=== PATIENT | female | born 1995 | race Caucasian/White ===

== ENCOUNTER → 2019-07-04 12:40 | Outpatient (CLI) | payer BC, SELFPAY ==
--- NOTE | 2019-07-04 12:46 | US_ITS ---
PROCEDURE: US TRANSVAGINAL CLINICAL INDICATION: LLQ PAIN COMPARISON: No exams were available for comparison FINDINGS: The uterus is 9 x 5 x 6 cm with a combined endometrial thickness of 1 cm. No obvious uterine mass. The left ovary is 4 x 1.6 cm with small follicles. The right ovary is 3.2 x 2.4 cm with small follicles. There is bilateral ovarian blood flow. Small amount fluid is present in the cul-de-sac. IMPRESSION: Small amount of cul-de-sac fluid. Endometrium upper limits of normal. Otherwise negative pelvic ultrasound Dictated by: Juan Guzman MD 07/04/2019 16:40 Electronically signed by Juan Guzman MD in [place] 07/04/2019 16:40
== END ==
PROVIDERS: PCP Family Medicine; Visit Provider Physician Assistant
DX: R10.32 Left lower quadrant pain (principal)
CPT/HCPCS: 76830

== ENCOUNTER → 2020-03-30 10:58 | Outpatient (POV) | payer BC, SELFPAY | PROVIDERS: Visit Provider Otolaryngology | DX: Z00.00 Encounter for general adult medical examination without abnormal findings (principal) ==

== ENCOUNTER → 2020-04-26 11:29 | Outpatient (CLI) | payer BC, SELFPAY ==
[2020-04-26 13:43] LABS: Coronavirus 19 IgG Antibody Positive (Negative); Coronavirus 19 IgM Antibody Negative (Negative)
== END ==
PROVIDERS: Visit Provider Otolaryngology
DX: Z20.828 Contact with and (suspected) exposure to other viral communicable diseases (principal); U07.1 COVID-19
CPT/HCPCS: 36415; 86328

== ENCOUNTER 2020-04-27 06:51 | Day surgery (SDC) | payer BC, SELFPAY ==
[2020-04-26 17:02] VITALS: BMI 21.9
[2020-04-27] VITALS (11 sets, daily range): BP systolic 124–137; BP diastolic 51–86; PULSE 63–103; RESP 16–18; TEMP 36.5–36.8; O2SAT 100
[2020-04-27 06:35] LABS: HCG Qualitative, Serum Negative (Negative)
--- NOTE | 2020-04-27 07:53 | P.PN_ITS ---
[facility] Anesthesia Checklist - Patient Identification Patient Identification: Arm Band - Structural Data Admitted From: Home Planned Operative Procedure/s: Bilateral Tonsillectomy Consent for Planned Operative Procedure(s) Verified: Yes Verified Documents: Surgical Consent, History and Physical - NPO Status Verified Time NPO: 00:00 - Additional verifications Anesthesia Reactions: No Hx Blood Transfusions: No Blood Transfusion Reaction: No - Airway Assessment C-Spine Mobility Assessed: Yes (mp1) TMJ Mobility Assessed: Yes Dentition: Good Dentition - Neurological Assessment Level of Consciousness: Awake, Alert - Anesthesia Plan Anesthesia Risk discussed: Yes Anesthesia Plan: Verified ASA Class: I Anesthesia Type: General [facility] History I have reviewed the patient's past medical history: Yes Medical History: Denies:: Cancer, Diabetes Mellitus Type 1, Diabetes Mellitus Type 2, MRSA, Seizures *Have you ever received a pneumonia vaccine?: No *Have you received a flu vaccine this season?: No Other Medical History: Denies: Blood Transfusion Reaction Anesthesia experience/problems:: nac Other Surgeries: Yes: Tubal Ligation Amputation: No Fractures: No - *Social History Smoking Status: Never smoker Alcohol Intake: never Alcohol Intake Frequency:: holidays/special occasions only Substance Use Type: denies use *Occupational Status:: unemployed Housing: house Household Members: spouse *Travel in the last 8 weeks: None Family Hx:: No significant family history
--- NOTE | 2020-04-27 09:24 | HMH.ANESI ---
[facility] Anesthesia Record Part I Intake, IV Amount: 1,000 Estimated blood loss (mL): 10 Urine output (mL): 0 (NM) Blood Products used (#): none Blood Pressure: 135/77 SaO2: 100 Pulse Rate: 103 Respiratory Rate: 16 Temperature: 97.7 F Patient is:: Awake, Stable Stable to PACU at:: 09:20
--- NOTE | 2020-04-27 10:23 | HMH.OPNOTE ---
Date of procedure: 04/27/20 Pre-op Diagnosis:: Recurrent tonsilitis and tonsil stones Post-op Diagnosis:: Same Procedure performed:: Adenotonsillectomy Surgeon:: Lashanda Combs MD FLOAT OPERATOR:: Andrew Henry Anesthesia: GETA Estimated blood loss (mL): 5 Operative findings:: Multiple tonsil stones Operative note:: Patient was brought to the operating room after informed consent was obtained. She was placed supine on the operating table and general endotracheal anesthesia was induced. A 7.0 endotracheal tube was placed and she was draped in the usual fashion for this procedure. A Mckenzie Kenneth mouthgag was placed in the patient's mouth with care not to injure the lips teeth tongue or gums and she was gently placed in suspension. A red rubber catheter was threaded on the right nare and secured at the nasal ala with a curved tonsil clamp. The right tonsil was grasped with a straight Allis clamp retracted medially and dissected free using Bovie electrocauterization and the left tonsil was removed in the same fashion. Once the tonsils removed the adenoid pad was inspected this was not significantly hypertrophied and the red rubber catheter was released and removed the Mckenzie Kenneth mouthgag was placed in the released position for approximately 2 minutes and then reexpanded. Minor bleeding from the tonsillar beds was controlled using suction Bovie cautery. The Mckenzie Kenneth mouthgag was then released and removed and the procedure was terminated. Patient was extubated in the operating room and taken the recovery room in good condition. Condition: stable Disposition: PACU Specimens:: bilateral tonsils Complications:: None apparent
--- NOTE | 2020-04-27 16:03 | HMH.ANESII ---
[facility] Anesthesia Record Part II Discharge Time: 09:50 Destination: Surgical Day Care (OP Surgery) PACU nurse assessment reviewed?: Yes Patient Condition:: Good Anesthesia Complications:: None Swallowing reflex intact?: Yes Cyanosis?: No Blood Pressure: 137/86 Pulse Rate: 77 Temperature: 97.7 F Mental Status: Alert & Oriented Pain level:: 0 Nausea and/or vomitting:: None Intake, IV Amount: 0 (Normovolemic)
== END 2020-04-27 10:30 | disposition home or self-care (01) ==
LOC: OR 06:53
PROVIDERS: PCP Family Medicine; Visit Provider Otolaryngology
PROC: (CPT 42821; principal; 2020-04-27 08:30)
DX: J03.91 Acute recurrent tonsillitis, unspecified (principal); J35.8 Other chronic diseases of tonsils and adenoids
CPT/HCPCS: 42821; 84703; J2405

== ENCOUNTER → 2020-08-10 10:07 | Outpatient (POV) | payer BC, SELFPAY | PROVIDERS: Visit Provider Otolaryngology | DX: Z00.00 Encounter for general adult medical examination without abnormal findings (principal) ==

== ENCOUNTER 2022-03-24 19:42 | Emergency (ER) | payer BC, SELFPAY ==
[2022-03-24 19:53] VITALS: BP 130/76; PULSE 69; RESP 16; TEMP 36.9; O2SAT 98; BMI 22.7
--- NOTE | 2022-03-24 20:04 | HMH.EDUTC ---
[facility] Disposition Clinical Impression: Contact dermatitis Qualifiers: Contact dermatitis type: allergic Contact dermatitis trigger: unspecified trigger Qualified Code(s): L23.9 - Allergic contact dermatitis, unspecified cause Allergic reaction Qualifiers: Encounter type: initial encounter Qualified Code(s): T78.40XA - Allergy, unspecified, initial encounter Disposition: Home, Self-Care Condition on Discharge: Good Instructions: DI for Contact Dermatitis Additional Instructions: Try to identify and avoid contact with the offending substance. Don't start the oral steroids until tomorrow. Don't put the topical steroids (triamcinolone) on your face or your groin. Follow up with your regular doctor. GO TO THE ER FOR ANY WORSENING SYMPTOMS OR CONCERNS Try to keep taking the benedryl you have regularly (every 6 hours) as much as you can for the next few days. Prescriptions: methylPREDNISolone [Medrol] 4 mg PO DIRECTED 6 Days #21 packet Transmission Status: Sent to [facility] Triamcinolone Acetonide 1 applicatio TP TIDP PRN 7 Days #1 gm PRN Reason: Itching Transmission Status: Sent to [facility] Referrals: Neetu Villalpando MD [Primary Care Provider] - Time of Disposition: 20:09 Medical Decision Making - Medical Records Medical records reviewed: No: I reviewed the patient's medical records. - Kulwant Inquiry Pt receiving controlled substance: No Vital Signs: 03/24/22 19:53 03/24/22 20:08 Temperature 98.4 F 98.4 F Temperature Source Oral Pulse Rate 69 Pulse Rate [Left] 69 Respiratory Rate 16 16 Blood Pressure 130/76 Blood Pressure [Right Arm] 130/76 Blood Pressure Mean [Right Arm] 94 02 Sat by Pulse Oximetry 98 Orders (Tests/Meds): ED MEDICATIONS Discontinued Medications Generic Name Dose Route Start Last Admin Trade Name Freq PRN Reason Stop Dose Admin Methylprednisolone Sodium Succinate 125 mg 03/24/22 20:04 03/24/22 20:07 Methylprednisolone Sod Succ 125mg Vial IM 03/24/22 20:05 125 mg ONCE ONE Administration [facility] HPI - General Stated complaint: rash Time Seen by Provider: 03/24/22 20:04 Mode of Arrival: Ambulatory Source of Information: Patient, Significant Other Limitations: No Limitations Description of Symptoms (Recalled from Triage Doc. by RN): patient comes in for a rash. symptoms have been ongoing for 4 days. rash is on thighs and spreading HEENT Symptoms (Recalled from RN notes): No Resp Symptoms (Recalled from RN notes): No Skin Symptoms (Recalled from RN notes): Yes MS Symptoms (Recalled from RN notes): No Functional Status (Recalled from RN notes): n/a - History of Present Illness Provider Complaint: She states that for the past 4 days she has had a worsening skin rash and itching of her arms, legs, abdomen and chest. - Related Data Previous Rx's Medication Instructions Recorded Triamcinolone Acetonide 1 applicatio TP TIDP PRN 7 Days #1 03/24/22 gm methylPREDNISolone [Medrol] 4 mg PO DIRECTED 6 Days #21 03/24/22 packet Allergies Allergy/AdvReac Type Severity Reaction Status Date / Time No Known Allergies Allergy Verified 03/24/22 19:57 - Worker's Comp Is this a Worker's Comp case?: No [facility] History - Hepatitis A Screen Attestation statement:: This patient has been screened for Hepatitis A risk factors. I have reviewed the patient's past medical history: Yes Medical History: Denies:: Cancer, Diabetes Mellitus Type 1, Diabetes Mellitus Type 2, MRSA, Seizures Other Medical History: Denies: Blood Transfusion Reaction Other Surgeries: Yes: Tubal Ligation Amputation: No Fractures: No - Social History Smoking Status: Never smoker Alcohol Intake: never Alcohol Intake Frequency:: holidays/special occasions only Substance Use Type: denies use Occupational Status: unemployed Housing: house Household Members: spouse Family Hx:: No significant family history ROS Obtained: Yes All sys
[2022-03-24 20:08] VITALS: BP 130/76; PULSE 69; RESP 16; TEMP 36.9
== END 2022-03-24 20:13 | disposition home or self-care (01) ==
PROVIDERS: Emergency Provider Nurse Practitioner Family; PCP Family Medicine
DX: L23.9 Allergic contact dermatitis, unspecified cause (principal)
CPT/HCPCS: 96372; 99213; G0463

== ENCOUNTER 2022-04-21 10:04 | Emergency (ER) | payer BC, SELFPAY ==
--- NOTE | 2022-04-21 10:55 | EXP.UTC ---
Discharge Plan Disposition Patient Disposition: Home, Self-Care Condition: Good Prescriptions Prescriptions: New amoxicillin-pot clavulanate 875-125 mg Tablet 1 tab PO Q12H Qty: 20 0RF Referrals Referrals: Neetu Villalpando MD [Primary Care Provider] - Enter time for follow up Activity Restrictions/Add. Instructions Additional Instructions/Restrictions: Apply warm wet compresses to the affected sites three or four times per day for 15 minutes as tolerated. Take the antibiotics as directed. Follow up with your regular doctor, any lymph node that is present longer than 2 weeks that does not go away with treatment must be further evalulated. Make sure you follow up. GO TO THE ER FOR ANY WORSENING SYMPTOMS OR CONCERNS Clinical Impressions Clinical Impression: Adenopathy, cervical Instructions Patient Instructions: DI for Lymphadenopathy Discharge ED Provider: Rios Ogluin [facility] General Stated complaint: Knot on RT side of neck, fatigue Time Seen by Provider: 04/21/22 10:55 History of Present Illness Provider Complaint: She states that for the past 3 to 4 weeks she has had an enlarged lymph node on the right front aspect of her neck. Related Data Previous Rx's Medication Instructions Recorded amoxicillin 875 mg-potassium 1 tab PO Q12H #20 tabs 04/21/22 clavulanate 125 mg tablet Allergies Allergy/AdvReac Type Severity Reaction Status Date / Time No Known Allergies Allergy Verified 04/21/22 11:06 [facility] Social History Smoking Status: Never smoker alcohol intake: never substance use type: denies use current occupational status: unemployed household members: spouse housing: house current occupational exposures/hazards: No ROS Obtained: Yes All systems reviewed & no additional complaints except as documented Constitutional Constitutional: Reports system reviewed and no additional complaints, except as documented Eyes Eyes: Reports system reviewed and no additional complaints, except as documented Cardiovascular Cardiovascular: Reports system reviewed and no additional complaints, except as documented Respiratory Respiratory: Reports system reviewed and no additional complaints, except as documented Gastrointestinal Gastrointestingal: Reports system reviewed and no additional complaints, except as documented Musculoskeletal Musculoskeletal: Reports system reviewed and no additional complaints, except as documented Integumentary/Breasts Skin/Breast: Reports system reviewed and no additional complaints, except as documented Physical Exam General General appearance: alert and in no apparent distress Head Head exam: atraumatic and normocephalic Eye Eye exam: Present normal appearance, PERRL and EOMI ENT ENT exam: Present normal exam, normal oropharynx, mucous membranes moist and TM's normal bilaterally Neck Neck exam: Present normal inspection, full ROM and trachea midline; Absent tenderness, meningismus or lymphadenopathy Chest Chest inspection: Present normal inspection and symmetric chest wall rise; Absent tenderness Respiratory Respiratory exam: Present normal lung sounds bilaterally; Absent respiratory distress, wheezes or stridor Cardiovascular Cardiovascular exam: Present regular rate, normal rhythm and normal heart sounds Abdominal Exam Abdominal exam: Present soft and normal bowel sounds; Absent distention, tenderness, guarding, rebound or rigidity Extremities Exam Extremities exam: Present normal inspection and full ROM; Absent tenderness Neurological Exam Neurological exam: Present alert and oriented X3 Medical Decision Making Medical Records Medical records reviewed: No I reviewed the patient's medical records. Kulwant Inquiry Pt receiving controlled substance: No Lab Data Lab results reviewed: Yes I reviewed the patient's lab results.
[2022-04-21 11:02] VITALS: BP 127/75; PULSE 71; RESP 18; TEMP 36.9; O2SAT 100; BMI 22.6
[2022-04-21 11:44] VITALS: BP 127/75; PULSE 71; RESP 18; TEMP 36.9
== END 2022-04-21 11:45 | disposition home or self-care (01) ==
PROVIDERS: Emergency Provider Nurse Practitioner Family; PCP Family Medicine
DX: R59.0 Localized enlarged lymph nodes (principal); R53.82 Chronic fatigue, unspecified
CPT/HCPCS: 99213; G0463

== ENCOUNTER → 2022-11-16 09:44 | Outpatient (CLI) | payer BC, SELFPAY ==
--- NOTE | 2022-11-16 09:49 | US_ITS ---
FINAL REPORT TECHNIQUE: Limited sonographic imaging of the neck soft tissues was obtained. CLINICAL HISTORY: LYNPHADENOPATHY FINDINGS: There are small lymph nodes throughout the right lateral neck measuring less than 1 cm. Parotid and submandibular glands are normal. IMPRESSION: Small lymph nodes throughout the right neck corresponding to palpable abnormality. Reviewed, Interpreted and Dictated by Brian Castellanos MD Transcribed by Keena Sandoval Authenticated and [facility]
== END ==
LOC: RAD 09:45
PROVIDERS: PCP Family Medicine; Visit Provider Nurse Practitioner Family
DX: R59.1 Generalized enlarged lymph nodes (principal)
CPT/HCPCS: 76536

== ENCOUNTER 2022-12-02 18:48 | Emergency (ER) | payer BC, SELFPAY ==
[2022-12-02 19:10] VITALS: BP 128/78; PULSE 75; RESP 20; TEMP 36.8; O2SAT 100; BMI 24.2
--- NOTE | 2022-12-02 19:16 | XR_ITS ---
PROCEDURE INFORMATION: Exam: XR Left Ankle Exam date and time: 12/02/2022 7:15 PM Age: 27 years old Clinical indication: Pain; Ankle; Left; Additional info: Fall TECHNIQUE: Imaging protocol: Radiologic exam of the left ankle. Views: 3 or more views. COMPARISON: No relevant prior studies available. FINDINGS: Bones/joints: No acute fracture or dislocation. Soft tissues: Normal. IMPRESSION: No acute fracture or dislocation.
--- NOTE | 2022-12-02 19:20 | EXP.UTC ---
Discharge Plan Disposition Patient Disposition: Home, Self-Care Condition: Good Prescriptions Prescriptions: New ibuprofen [ibuprofen] 600 mg tablet 600 mg PO Q6HP PRN (Reason: Mild Pain) Qty: 30 0RF Referrals Follow up/Referrals: Neetu Villalpando MD [Primary Care Provider] - See instructions Sarah Castellon DPM [Staff Physician] - See instructions Activity Restrictions/Add. Instructions Additional Instructions/Restrictions: Rest the extremity, apply ice for 15 minutes as tolerated three or four times per day, Wear the marlee wrap for compression, Elevate the extremity as tolerated while you are resting. Take ibuprofen for pain. I sent in a prescription to your pharmacy. Follow up with Dr. Castellon (podiatry). Sometimes there can be fractures that don't show up well on the first set of x-rays. There can be torn ligaments and tendons that don't show up on x-ray also. So, you should follow up with orthopedics, especially if your symptoms continue to not get better. Follow up with your regular doctor. GO TO THE ER FOR ANY WORSENING SYMPTOMS Clinical Impressions Clinical Impression: Left ankle sprain Instructions Patient Instructions: Ankle Sprain, DI for Ankle Sprain Discharge ED Provider: Rios Olguin [facility] General Stated complaint: AO 11/25 fell injured L ankle Mode of Arrival: Ambulatory Source of Information: Patient Limitations: No Limitations Time Seen by Provider: 12/02/22 19:20 Description of Symptoms (Recalled from Triage Doc. by RN): left ankle swollen and hurt. She hurt it 2 weeks ago. She fell off 2 steps, and it is throbbing in pain HEENT Symptoms (Recalled from RN notes): No Resp Symptoms (Recalled from RN notes): No Skin Symptoms (Recalled from RN notes): No MS Symptoms (Recalled from RN notes): Yes Functional Status (Recalled from RN notes): n/a History of Present Illness Provider Complaint: She states that her left ankle is swollen and hurting. She originally twisted it 2 weeks ago. Today, she fell off 2 steps, and twisted it again. Now her pain is worse. Related Data Previous Rx's Medication Instructions Recorded ibuprofen 600 mg tablet 600 mg PO Q6HP PRN Mild Pain #30 12/02/22 tabs Allergies Allergy/AdvReac Type Severity Reaction Status Date / Time No Known Allergies Allergy Verified 12/02/22 19:17 Worker's Comp Is this a Worker's Comp case?: No [facility] Disclaimer: The information contained in this section may have been updated after the patient was seen, as this information can be updated by other users. Social History Smoking Status: Never smoker alcohol intake: never substance use type: denies use current occupational status: unemployed Travel in the last 8 weeks: None household members: spouse housing: house current occupational exposures/hazards: No ROS Obtained: Yes All systems reviewed & no additional complaints except as documented Constitutional Constitutional: Denies chills and Denies fever(s) Eyes Eyes: Denies eye discharge ENT Ears, Nose, Mouth, and Throat: Denies dizziness, Denies otalgia and Denies sore throat Cardiovascular Cardiovascular: Denies chest pain Respiratory Respiratory: Denies shortness of breath, Denies chest congestion, Denies cough, Denies stridor and Denies wheezing Gastrointestinal Gastrointestingal: Denies nausea or vomiting Musculoskeletal Musculoskeletal: Reports as per HPI Integumentary/Breasts Skin/Breast: Denies rash Neurologic Neurologic: Denies dizziness and Denies paresthesias Allergic/Immunologic Allergic/Immunologic: Denies wheezing Physical Exam General General appearance: alert and in no apparent distress Head Head exam: atraumatic, normocephalic and normal inspection Eye Eye exam: Present normal appearance, PERRL and EOMI ENT ENT exam: Present normal exam, normal oropharynx, mucous membranes moist, TM's normal bilaterally and nor
[2022-12-02 20:10] VITALS: BP 128/78; PULSE 75; RESP 20; TEMP 36.8; O2SAT 100
== END 2022-12-02 20:10 | disposition home or self-care (01) ==
PROVIDERS: Emergency Provider Nurse Practitioner Family; PCP Family Medicine
DX: S93.402A Sprain of unspecified ligament of left ankle, initial encounter (principal); W10.8XXA Fall (on) (from) other stairs and steps, initial encounter
CPT/HCPCS: 73610; 99212; 99214; G0463

== ENCOUNTER 2023-09-04 08:00 | Emergency (ER) | payer OTHER, SELFPAY ==
[2023-09-04 08:20] VITALS: BP 113/68; PULSE 80; RESP 18; TEMP 36.8; O2SAT 100; BMI 25.8
--- NOTE | 2023-09-04 08:30 | EXP.UTC ---
Discharge Plan Disposition Patient Disposition: Home, Self-Care Condition: Good Prescriptions Prescriptions: New azithromycin [Zithromax] 250 mg tablet 250 mg PO UD DOSE PK Qty: 6 0RF Rx Instructions: Take two (2) tablets today, then one (1) tablet days #2 thru #5 methylprednisolone 4 mg Tablets,Dose Pack 4 mg PO DIRECTED 6 Days Qty: 21 0RF Rx Instructions: Take 1 pack as directed for 6 days [id number] [Bromfed DM] 2-30-10 mg/5 mL Syrup 5 ml PO Q6H PRN (Reason: Cough) Qty: 240 0RF Referrals Follow up/Referrals: Neetu Villalpando MD [Primary Care Provider] - See instructions Activity Restrictions/Add. Instructions Additional Instructions/Restrictions: Drink plenty of fluids. Take tylenol or ibuprofen for pain or fever. Take the medications as directed. Follow up with your regular doctor. GO TO THE ER FOR ANY WORSENING SYMPTOMS Clinical Impressions Clinical Impression: Sinusitis Stand Alone Forms Stand Alone Forms: Work/School Release Instructions Patient Instructions: Sinusitis, DI for Sinusitis Discharge ED Provider: Rios Olguin [facility] General Stated complaint: face pain, congestion, runny nose Time Seen by Provider: 09/04/23 08:30 History of Present Illness Provider Complaint: She states that for the past 4 weeks she has had sinus congestion, ear pressure, and a cough. Related Data Previous Rx's Medication Instructions Recorded azithromycin 250 mg tablet 250 mg PO UD DOSE PK #6 tabs 09/04/23 (Zithromax) [id number]-klovgjxoxpvjxmn-[id number] 5 ml PO Q6H PRN Cough #240 mL 09/04/23 2 mg-30 mg-10 mg/5 mL oral syrup (Bromfed DM) methylprednisolone 4 mg tablets in 4 mg PO DIRECTED 6 days #21 tabs 09/04/23 a dose pack Allergies Allergy/AdvReac Type Severity Reaction Status Date / Time No Known Allergies Allergy Verified 09/04/23 08:36 [facility] Disclaimer: The information contained in this section may have been updated after the patient was seen, as this information can be updated by other users. Surgical History History of tonsillectomy Family History Other Alcoholism Asthma Cancer Coronary artery disease Diabetes FHx: mental illness Heart attack Hyperlipidemia Hypertension Substance abuse Social History Smoking Status: Never smoker alcohol intake: never substance use type: denies use current occupational status: unemployed Travel in the last 8 weeks: None household members: spouse housing: house current occupational exposures/hazards: No ROS Obtained: Yes All systems reviewed & no additional complaints except as documented Constitutional Constitutional: Reports poor appetite Eyes Eyes: Reports system reviewed and no additional complaints, except as documented ENT Ears, Nose, Mouth, and Throat: Reports as per HPI Cardiovascular Cardiovascular: Reports system reviewed and no additional complaints, except as documented and Denies chest pain Respiratory Respiratory: Denies shortness of breath, Denies chest congestion, Reports cough, Denies stridor and Denies wheezing Gastrointestinal Gastrointestingal: Reports system reviewed and no additional complaints, except as documented; Denies abdominal pain, diarrhea or vomiting Musculoskeletal Musculoskeletal: Reports system reviewed and no additional complaints, except as documented and Denies arthralgias Integumentary/Breasts Skin/Breast: Reports system reviewed and no additional complaints, except as documented and Denies rash Neurologic Neurologic: Denies paresthesias Allergic/Immunologic Allergic/Immunologic: Denies wheezing Physical Exam General General appearance: alert and in no apparent distress Eye Eye exam: Present normal appearance, PERRL and EOMI ENT ENT exam: Present mucous membranes moist and normal external ear exam Expanded ENT Exam External ear exam: Present normal external inspection TM/Canal exam: Bilateral TM: erythema and bulging Nose exam: Absent sinus tenderness Nasal speculum exam: Bilateral: normal Mouth exam: Present normal external inspection; Absent drooling Teeth exam: Present normal inspection Throat exam: Present tonsillar erythema and tonsillomegaly Neck Neck exam: Present normal inspection, full ROM and trachea midline; Absent tenderness, lymphadenopathy or thyromegaly Chest Chest inspection: Present normal inspection and symmetric chest wall rise; Absent tenderness or rash Respiratory Respiratory exam: Present normal lung sounds bilaterally; Absent respiratory distress, wheezes, stridor or accessory muscle use Cardiovascular Cardiovascular exam: Present regular rate, normal rhythm and normal heart sounds Abdominal Exam Abdominal exam: Present soft; Absent distention, tenderness, guarding, rebound or rigidity Extremities Exam Extremities exam: Present normal inspection, full ROM and normal capillary refill; Absent tenderness or calf tenderness Back Exam Back exam: Present normal inspection and full ROM; Absent tenderness Neurological Exam Neurological exam: Present alert and oriented X3 Psychiatric Psychiatric exam: Present normal affect and normal mood Skin Skin exam: Present warm, dry, intact and normal color Lymphatic Lymphatic Findings: no adenopathy Medical Decision Making Medical Records Medical records reviewed: No I reviewed the patient's medical records. Kulwant Inquiry Pt receiving controlled substance: No
[2023-09-04 08:54] VITALS: BP 113/68; PULSE 80; RESP 18; TEMP 36.8; O2SAT 100
== END 2023-09-04 08:54 | disposition home or self-care (01) ==
PROVIDERS: Emergency Provider Nurse Practitioner Family; PCP Family Medicine
DX: J01.90 Acute sinusitis, unspecified (principal); R09.81 Nasal congestion; H92.03 Otalgia, bilateral; R05.9 Cough, unspecified
CPT/HCPCS: 99212; 99214; G0463

== ENCOUNTER 2023-10-16 10:27 | Emergency (ER) | payer OTHER, SELFPAY ==
[2023-10-16 11:00] VITALS: BP 118/71; PULSE 65; RESP 17; TEMP 36.6; O2SAT 100; BMI 24.2
--- NOTE | 2023-10-16 11:18 | EXP.UTC ---
Discharge Plan Disposition Patient Disposition: Home, Self-Care Condition: Good Prescriptions Prescriptions: New diphenhydramine HCl [Diphenhydramine HCl] 25 mg capsule 25 mg PO Q6HP PRN (Reason: Itching) Qty: 30 0RF methylprednisolone 4 mg Tablets,Dose Pack 4 mg PO DIRECTED 6 Days Qty: 21 0RF Rx Instructions: Take 1 pack as directed for 6 days Referrals Follow up/Referrals: Provider,Referral, MD [Primary Care Provider] - See instructions Activity Restrictions/Add. Instructions Additional Instructions/Restrictions: Try to identify and avoid contact with the offending substance. Don't start the oral steroids until tomorrow. The diphenhydramine (benedryl) will make you drowsy, so don't drive or operate heavy machinery after taking it. Follow up with your regular doctor. GO TO THE ER FOR ANY WORSENING SYMPTOMS OR CONCERNS Clinical Impressions Clinical Impression: Allergic reaction Instructions Patient Instructions: DI for General Allergic Reactions, Diphenhydramine, Methylprednisolone Injection Discharge ED Provider: Rios Olguin [facility] [place] General Stated complaint: rash on both arms and legs Mode of Arrival: Ambulatory Source of Information: Patient Limitations: No Limitations Time Seen by Provider: 10/16/23 11:17 Description of Symptoms (Recalled from Triage Doc. by RN): Pt is having an allergic reaction on arms and legs. She is showing a rash. She stated that nothing is new or changed to cause this. HEENT Symptoms (Recalled from RN notes): Yes Resp Symptoms (Recalled from RN notes): No Skin Symptoms (Recalled from RN notes): No MS Symptoms (Recalled from RN notes): No Functional Status (Recalled from RN notes): n/a History of Present Illness Provider Complaint: She states that for the past 2 days she has had an itchy rash on her forearms and thighs. Related Data Previous Rx's Medication Instructions Recorded diphenhydramine HCl 25 mg capsule 25 mg PO Q6HP PRN Itching #30 caps 10/16/23 methylprednisolone 4 mg tablets in 4 mg PO DIRECTED 6 days #21 tabs 10/16/23 a dose pack Allergies Allergy/AdvReac Type Severity Reaction Status Date / Time No Known Allergies Allergy Verified 10/16/23 11:16 Worker's Comp Is this a Worker's Comp case?: No [facility] Disclaimer: The information contained in this section may have been updated after the patient was seen, as this information can be updated by other users. Surgical History History of tonsillectomy Family History Other Alcoholism Asthma Cancer Coronary artery disease Diabetes FHx: mental illness Heart attack Hyperlipidemia Hypertension Substance abuse Social History Smoking Status: Never smoker alcohol intake: never substance use type: denies use current occupational status: unemployed Travel in the last 8 weeks: None household members: spouse housing: house current occupational exposures/hazards: No ROS Obtained: Yes All systems reviewed & no additional complaints except as documented Constitutional Constitutional: Denies chills and Denies fever(s) Eyes Eyes: Denies eye discharge ENT Ears, Nose, Mouth, and Throat: Denies dizziness, Denies otalgia and Denies sore throat Cardiovascular Cardiovascular: Denies chest pain Respiratory Respiratory: Denies shortness of breath, Denies chest congestion, Denies cough, Denies stridor and Denies wheezing Gastrointestinal Gastrointestingal: Denies nausea or vomiting Musculoskeletal Musculoskeletal: Reports system reviewed and no additional complaints, except as documented and Denies arthralgias Integumentary/Breasts Skin/Breast: Reports as per HPI and Reports rash Neurologic Neurologic: Denies dizziness and Denies paresthesias Allergic/Immunologic Allergic/Immunologic: Denies wheezing Physical Exam General General appearance: alert and in no apparent distress Head Head exam: atraumatic, normocephalic and normal inspection Eye Eye exam: Present normal appearance, PERRL and EOMI ENT ENT exam: Present normal exam, normal oropharynx, mucous membranes moist, TM's normal bilaterally and normal external ear exam Neck Neck exam: Present normal inspection, full ROM and trachea midline; Absent meningismus or lymphadenopathy Chest Chest inspection: Present normal inspection and symmetric chest wall rise; Absent tenderness Respiratory Respiratory exam: Present normal lung sounds bilaterally; Absent respiratory distress Cardiovascular Cardiovascular exam: Present regular rate and normal rhythm; Absent JVD Abdominal Exam Abdominal exam: Present soft and normal bowel sounds; Absent distention, tenderness or guarding Extremities Exam Extremities exam: Present normal inspection, full ROM and normal capillary refill; Absent calf tenderness Back Exam Back exam: Present normal inspection; Absent tenderness Neurological Exam Neurological exam: Present alert and oriented X3 Psychiatric Psychiatric exam: Present normal affect and normal mood Skin Skin exam: Present rash Lymphatic Lymphatic Findings: no adenopathy Medical Decision Making Medical Records Medical records reviewed: No I reviewed the patient's medical records. [place] Inquiry Pt receiving controlled substance: No Vital Signs: 10/16/23 11:00 Temperature 97.8 F Temperature Source Oral Pulse Rate [Right Radial] 65 Respiratory Rate 17 Blood Pressure [Right Arm] 118/71 Blood Pressure Mean [Right Arm] 86 Blood Pressure Source [Right Arm] Automatic Cuff Blood Pressure Position [Right Arm] Sitting 02 Sat by Pulse Oximetry 100 Oxygen Delivery Method Room Air
[2023-10-16] MEDS: METHYLPREDNISOLONE SOD SUCC 125MG VIAL 125 MG IM (11:36)
[2023-10-16 11:50] VITALS: BP 118/71; PULSE 65; RESP 16; TEMP 36.6; O2SAT 100
== END 2023-10-16 11:50 | disposition home or self-care (01) ==
PROVIDERS: Emergency Provider Nurse Practitioner Family
DX: L50.0 Allergic urticaria (principal); T78.40XA Allergy, unspecified, initial encounter
CPT/HCPCS: 96372; 99212; 99214; G0463